=== PATIENT | female | born 1975 | race African-American/Black ===

== ENCOUNTER 2023-09-19 20:07 | Emergency (ER) | payer MEDICAID, SELFPAY ==
[2023-09-19 20:42] VITALS: BP 132/66; PULSE 86; RESP 18; TEMP 37; O2SAT 100; BMI 32.8
--- NOTE | 2023-09-19 20:55 | MHC.EDTECH ---
Patient brought into triage area,sars/flu/rsv,and step swabs obtained and sent to lab.
[2023-09-19 20:57] LABS: IDNOW Serial# 58CA691E; Strep A Nucleic Acid Positive (Negative)
[2023-09-19 21:31] LABS: Influenza A PCR NEGATIVE (Negative); Influenza B PCR NEGATIVE (Negative); Resp Syncy Virus RNA Qual PCR NEGATIVE (Negative); SARS COV2 PCR INHOUSE NEGATIVE (Negative)
--- NOTE | 2023-09-19 23:07 | ED.GENADULT ---
HPI - General Adult General Chief complaint: Upper Respiratory Symptoms Stated complaint: sore throat Time Seen by Provider: 09/19/23 22:27 Source: patient, family (Daughter), RN notes reviewed, old records reviewed and housing relocation Mode of arrival: ambulatory Limitations: language barrier ([place] Creole) History of Present Illness HPI narrative: 47-year-old female presents for evaluation of a sore throat. Patient reports that she has had a sore throat for 1 week She reports that she has painful swallowing Reports subjective fevers and general malaise Denies any coughing, abdominal pain, nausea vomiting Related Data Previous Rx's ?Medication ?Instructions ?Recorded amoxicillin 875 mg-potassium 1 tab PO Q12H #14 tabs 09/19/23 clavulanate 125 mg tablet Allergies Allergy/AdvReac Type Severity Reaction Status Date / Time No Known Allergies Allergy Verified 09/19/23 20:45 Review of Systems Constitutional: Constitutional: Reports body ache(s), Reports chills and Reports fever(s) ENT: Reports sore throat Cardiovascular: Cardiovascular: Denies chest pain and Denies dyspnea Respiratory: Respiratory: Denies cough and Denies dyspnea Gastrointestinal: Gastrointestinal: Denies abdominal pain, Denies nausea and Denies vomiting Musculoskeletal: Musculoskeletal: Denies back pain Integumentary/Breasts: Skin/Breast: Denies rash PMFSH Social History Social History Advance Directives: No Advance Directives Information Provided: No Physical Exam ED Vital Signs: Vital Signs - 24 hr 09/19/23 20:42 Temperature 98.6 F Pulse Rate 86 Respiratory Rate 18 Blood Pressure 132/66 Pulse Oximetry 100 Oxygen Delivery Method Room Air BMI result Body Mass Index 32.8 Const General: healthy appearing, comfortable, no acute distress, alert and awake Nutritional Appearance: well nourished Orientation/consciousness: patient oriented x3 HENMT Head: Yes normocephalic and Yes atraumatic Eyes Other: Retropharynx is erythematous, no obvious exudates. No evidence of peritonsillar abscess Eyelids: Yes eyelids normal Conjunctivae: conjunctivae normal Sclerae: sclerae normal Corneas: corneas normal Pupils: Equal, round and reactive pupils present EOM: EOMs intact bilaterally Neck Neck: Yes full ROM Resp Effort & Inspection: normal respiratory effort, able to speak in complete sentences and not labored Cardio Rate: regular rate Rhythm: regular rhythm GI Inspection: No distended Palpation (GI): Soft to palpation, not firm, nontender, no guarding and not rigid Skin General skin exam: elasticity normal Neuro General: patient oriented x3 Cranial nerves: Yes Equal, round and reactive pupils present and Yes Bilaterally intact EOM present Cognition (Neuro): normal cognition Extrem Other: Moving all extremities well without any obvious deformities Medical Decision Making Medical Decision Making MDM Narrative: 47-year-old female presents for evaluation of a sore throat. She tested positive for strep throat, no evidence of peritonsillar abscess. Will treat with Augmentin b.i.d. x7 days Differential Diagnosis Differential Diagnoses: The differential diagnosis associated with the presentation includes Pharyngitis Strep pharyngitis Upper respiratory infection Peritonsillar abscess Lab Data Labs: Lab Results 09/19/23 Range/Units 20:50 Influenza Type A (PCR) NEGATIVE (Negative) Influenza Type B (PCR) NEGATIVE (Negative) RSV RNA Qual (PCR) NEGATIVE (Negative) SARS-CoV-2 RNA (RT-PCR) NEGATIVE (Negative) S. pyogenes GrpA DAYA Positive A (Negative) Discharge Plan Discharge Clinical Impression: Strep throat Patient Disposition: Home, Self-Care Instructions: Strep Throat (ED) Additional Instructions: You tested positive for strep throat. Take Augmentin twice daily for 7 days. You may also use saltwater gargles to help with the pain. Use Motrin/Tylenol for pain Follow-up with your primary doctor Prescriptions: New amoxicillin-pot clavulanate 875-125 mg tablet 1 tab PO Q12H Qty: 14 0RF Print Language: Diomedes Fox
[2023-09-19 23:20] VITALS: BP 122/57; PULSE 86; RESP 16; O2SAT 97
[2023-09-19] MEDS: Amoxicillin/Potassium Clav 875 MG TABLET PO (23:20)
[2023-09-19 23:38] VITALS: BP 122/57; PULSE 86; RESP 17; TEMP 37; O2SAT 97
== END 2023-09-19 23:39 | disposition home or self-care (01) ==
PROVIDERS: Physician Assistant Medical; Emergency Provider Emergency Medicine
DX: J02.0 Streptococcal pharyngitis (principal)
CPT/HCPCS: 0241U; 87651; 99283

== ENCOUNTER 2023-12-22 15:31 | Outpatient (REF) | payer MEDICAID, SELFPAY ==
[2023-12-22 15:50] LABS: MANUAL DIFF FLAG NO
[2023-12-22 17:13] LABS: Basophils Percent Auto 0.5 % (0-2); Eosinophils Absolute Auto 0.1 X10*3/uL (0.0-0.4); Eosinophils Percent Auto 1.3 % (0-4); Hematocrit 38.3 % (37.0-47.0); Hemoglobin 12.9 g/dl (12.0-16.0); Imm Gran Abs Auto 0.03 X10*3/uL (0.00-0.03); Imm Gran Pct Auto 0.4 % (0.0-0.4); Lymphocytes Absolute Auto 1.6 X10*3/uL (1.2-4.9); Lymphocytes Percent Auto 20.5 % (20-40); Mean Corpuscular HGB Conc 33.7 g/dl (31.0-35.0); Mean Corpuscular Hemoglobin 29.9 pg (27.0-33.0); Mean Corpuscular Volume 88.7 fL (80.0-98.0); Mean Platelet Volume 12.7 fL (9.4-12.3); Monocytes Absolute Auto 0.5 X10*3/uL (0.1-1.2); Monocytes Percent Auto 6.4 % (2-11); Neutrophils Absolute Auto 5.5 x10*3/uL (2.0-8.3); Neutrophils Percent Auto 70.9 % (45-73); Platelet Count 217 X10*3/uL (160-400); Red Blood Count 4.32 X10*6/uL (4.20-5.50); Red Cell Distribution Width 14.4 % (11.0-16.0); White Blood Count 7.8 X10*3/uL (4.8-10.8)
[2023-12-22 18:08] LABS: Alanine Aminotransferase 29 U/L (0-31); Albumin Level 4.2 g/dL (3.5-5.0); Alkaline Phosphatase 83 U/L (39-117); Anion Gap 11 (12-20); Aspartate Amino Transferase 32 U/L (5-31); Bilirubin Total 0.3 mg/dL (0.0-1.0); Blood Urea Nitrogen 13 mg/dL (9-16); Calcium 9.3 mg/dL (8.4-10.2); Carbon Dioxide 24 mmol/L (22-29); Chloride 107 mmol/L (96-108); Cholesterol 252 mg/dL (<200); Estimated Glomerular Filt Rate > 60; Glucose Random 102 mg/dL (60-115); HDL Cholesterol 64 mg/dL (>40); LDL Cholesterol Calculated 144 mg/dL (<100); Potassium 4.2 mmol/L (3.3-5.1); Sodium 138 mmol/L (135-145); Total Protein 7.4 g/dL (6.5-8.0); Triglycerides 221 mg/dL (<150)
[2023-12-22 18:13] LABS: Thyroid Stimulating Hormone 1.48 uIU/mL (0.32-4.0)
== END 2023-12-22 15:32 | disposition home or self-care (01) ==
LOC: HO.LAB 15:31
PROVIDERS: PCP Internal Medicine; Visit Provider Internal Medicine
DX: Z00.00 Encounter for general adult medical examination without abnormal findings (principal); I10 Essential (primary) hypertension; E66.9 Obesity, unspecified; F32.9 Major depressive disorder, single episode, unspecified; Z12.4 Encounter for screening for malignant neoplasm of cervix
CPT/HCPCS: 36415; 80053; 80061; 84443; 85025

== ENCOUNTER 2024-01-29 09:46 | Emergency (ER) | payer MEDICAID, SELFPAY ==
[2024-01-29 09:58] VITALS: BP 104/59; PULSE 84; RESP 16; TEMP 36.1; O2SAT 97; BMI 32.6
--- NOTE | 2024-01-29 10:10 | ED_ITS ---
HPI - Eye Problem General Chief complaint: Eye Problems Stated complaint: Eye issues Time Seen by Provider: 01/29/24 10:05 Source: patient Mode of arrival: ambulatory Limitations: language barrier History of Present Illness HPI Narrative: 48 year old female with no significant past medical history presents to the emergency department, with family, for concerns for right eye pain and vision changes for 1 week. She reports roughly 1 week ago she got boiling water in the eye and has been having pain since. She states she made an appointment with a eye doctor for 02/18/2024 but states that she does not believe she can wait for that appointment. She denies any discharge from the eye. Related Data Previous Rx's ?Medication ?Instructions ?Recorded amoxicillin 875 mg-potassium 1 tab PO Q12H #14 tabs 09/19/23 clavulanate 125 mg tablet erythromycin 5 mg/gram (0.5 %) eye 0.5 inch ophthalmic-Right .At 01/29/24 ointment night #3.5 grams ofloxacin 0.3 % eye drops 2 drp ophthalmic-Right QID 5 days 01/29/24 #10 mL Allergies Allergy/AdvReac Type Severity Reaction Status Date / Time No Known Allergies Allergy Verified 01/29/24 10:10 Review of Systems Review of Systems: Yes all other systems are reviewed and are negative PMFSH Social History Social History Advance Directives: No Advance Directives Information Provided: No Physical Exam Vital Signs: Vital Signs: Last Vital Signs Temp 97 F 01/29/24 09:58 Pulse 84 01/29/24 09:58 Resp 16 01/29/24 09:58 BP 104/59 L 01/29/24 09:58 Pulse Ox 97 01/29/24 09:58 O2 Del Method Room Air 01/29/24 09:58 BMI result Body Mass Index 32.6 Nursing notes and vital signs reviewed. GENERAL APPEARANCE: A&0 x 4, generally well appearing, no acute distress HENMT: Normal to inspection, atraumatic, face symmetrical. Normal external ears, nose, and oropharynx clear. EYE: PERRLA, EOM intact, structures appear normal NECK: Supple without stiffness or restricted ROM. HEART: Normal rate and regular rhythm, normal S1/S2, no M/R/G LUNGS: LS CTA, moving air well. Able to speak in complete sentences. No crackles, wheezes, or rhonchi auscultated BACK: No CVAT, no obvious deformity EXTREMITIES: Moving all extremities without difficulty. Normal capillary refill. NEUROLOGICAL: Alert and oriented, moving all 4 extremities with equal strength. CN not formally tested but appearing grossly intact. Observed to ambulate with normal gait. Cognition normal SKIN: Warm and dry without any lesions, rash, or visible sores Eyes: Alignment and Position: alignment normal and position normal Eyelids: Yes eyelids normal Conjunctivae: conjunctivae normal and conjunctival abnormal Sclerae: sclerae normal Corneas: corneas abnormal on the right fluorescein used and abrasion at the following clock position (6 ); with no foreign body noted and fluorescein used Pupils: Equal, round and reactive pupils present EOM: EOMs intact bilaterally Neuro: Cranial nerves: Yes Equal, round and reactive pupils present Medications Administered Discontinued Medications Generic Name Dose Route Start Last Admin Trade Name Freq PRN Reason Stop Dose Admin Fluorescein Sodium 1 strip 01/29/24 10:06 01/29/24 10:12 Fluorescein Sodium Strip EYE-RIGHT 01/29/24 10:07 1 strip ONCE ONE Administration Tetracaine HCl 3 drop 01/29/24 10:06 01/29/24 10:12 Tetracaine Hcl/Pf 0.5% Oph Cuca 4 Ml Drops EYE-RIGHT 01/29/24 10:07 3 drop ONCE ONE Administration Medical Decision Making Medical Decision Making MDM Narrative: Old records reviewed for previous imaging, lab studies, ECGs, and notes. HPI obtained using tablet for [employer] rn or lvn. Patient was assessed the emergency department with no acute distress or toxicity noted. Tetracaine and fluorescein instilled into bilateral eyes ulceration or abrasion noted at 6 o'clock area of the cornea. Erythromycin and ofloxacin eye drops and the patient preferred pharmacy for management of symptoms. Patient reports that she has an appointment at the beginning of February with Ophthalmology. Patient educated to continue with that for follow-up return to the emergency department for worsening symptoms or other concerns. Patient is safe for discharge at this time with plan for [id number] Tylenol and/or NSAID such as ibuprofen or naproxen for fever/discomfort with dosing as per packaging. HPI, PE, diagnostics, and plan discussed with patient and family with no unanswered questions at this time. Strict return precautions given to return to the emergency department with new, worsening, or concerning emergent symptoms. Recommended to follow-up with there primary care provider in 24-48 hours for further treatment and management. Differential Diagnosis Differential Diagnoses: The differential diagnosis associated with the presentation includes But not limited to corneal abrasion, corneal ulcer, ocular burn, iritis, keratitis, herpes simplex, conjunctivitis, closed angle glaucoma, orbital trauma Independent Historian Clinical information obtained from an independent historian. History obtained from or confirmed by: Friend External Record Review External record reviewed: Prior outpatient labs Social Determinants Patient?s care significantly limited by Social Determinants of Health including: Other Social Determinant of Health Discharge Plan Discharge Clinical Impression: Corneal abrasion, right Patient Disposition: Home, Self-Care Instructions: Erythromycin (Into the eye), Ofloxacin (Into the eye), Corneal Abrasion (ED) Prescriptions: New ofloxacin 0.3 % drops 2 drp ophthalmic-Right QID 5 Days Qty: 10 0RF erythromycin 5 mg/gram (0.5 %) ointment 0.5 inch ophthalmic-Right .At night Qty: 3.5 0RF No Action amoxicillin-pot clavulanate 875-125 mg tablet 1 tab PO Q12H Qty: 14 0RF Referrals: [facility] [place] Family Medicine [Provider Group] [facility] [place] [facility] [Provider Group] [facility] [place] [facility] [Provider Group] Print Language: Diomedes Fox
[2024-01-29] MEDS: Fluorescein Sodium STRIP 1 STRIP EYE-RIGHT (10:12)
[2024-01-29] MEDS: Tetracaine HCl/PF 0.5% Oph Sol 4 ML DROPS 3 DROP EYE-RIGHT (10:12)
[2024-01-29 10:45] VITALS: BP 155/71; PULSE 76; RESP 18; TEMP 36.7; O2SAT 98
== END 2024-01-29 10:46 | disposition home or self-care (01) ==
PROVIDERS: Emergency Provider Emergency Medicine
DX: S05.01XA Injury of conjunctiva and corneal abrasion without foreign body, right eye, initial encounter (principal); X58.XXXA Exposure to other specified factors, initial encounter; Y93.89 Activity, other specified; Y92.89 Other specified places as the place of occurrence of the external cause; Y99.8 Other external cause status
CPT/HCPCS: 99282; 99283

== ENCOUNTER 2024-04-14 13:38 | Emergency (ER) | payer MEDICAID, SELFPAY ==
[2024-04-14 14:40] VITALS: BP 134/68; PULSE 81; RESP 16; TEMP 37; O2SAT 100; BMI 34.8
[2024-04-14] MEDS: Tetracaine HCl/PF 0.5% Oph Sol 4 ML DROPS 3 DROP EYE-BOTH (15:23)
[2024-04-14] MEDS: Fluorescein Sodium STRIP 1 STRIP EYE-RIGHT ×2 (15:23)
[2024-04-14 15:56] VITALS: BP 122/71; PULSE 77; RESP 16; TEMP 36.4; O2SAT 100
--- NOTE | 2024-04-14 16:11 | ED.GENADULT ---
HPI - General Adult General Chief complaint: Eye Problems Stated complaint: l eye swelling Time Seen by Provider: 04/14/24 14:50 Source: patient Mode of arrival: ambulatory Limitations: no limitations History of Present Illness ED Provider: Eric Kwong PA-C HPI narrative: 48-year-old female history of hypertension but not on any medication presents to ED for left eye pain with redness for the past 3 weeks. Patient was seen here 3 weeks ago and diagnosed size corneal abrasion but patient states no relief with antibiotic ointments. Patient states for 1 year having left and right eye redness interchangeably. Patient never had a workup. Related Data Previous Rx's ?Medication ?Instructions ?Recorded amoxicillin 875 mg-potassium 1 tab PO Q12H #14 tabs 09/19/23 clavulanate 125 mg tablet erythromycin 5 mg/gram (0.5 %) eye 0.5 inch ophthalmic-Right .At 01/29/24 ointment night #3.5 grams ofloxacin 0.3 % eye drops 2 drp ophthalmic-Right QID 5 days 01/29/24 #10 mL Allergies Allergy/AdvReac Type Severity Reaction Status Date / Time No Known Allergies Allergy Verified 04/14/24 14:43 Review of Systems Review of Systems: Left eye pain redness Yes all other systems are reviewed and are negative PMFSH Social History Social History Advance Directives: No Advance Directives Information Provided: Yes Physical Exam ED Vital Signs: Vital Signs - 24 hr 04/14/24 14:40 04/14/24 15:56 04/14/24 16:17 Temperature 98.6 F 97.6 F 97.6 F Pulse Rate 81 77 77 Respiratory Rate 16 16 16 Blood Pressure 134/68 122/71 122/71 Pulse Oximetry 100 100 100 Oxygen Delivery Method Room Air Room Air Room Air BMI result Body Mass Index 34.8 Const General: cooperative, healthy appearing, comfortable, no acute distress, well developed, alert, awake and Physically active Orientation/consciousness: patient oriented x3 HENMT Head: Yes normal to inspection, Yes No palpable skull fracture present, Yes normocephalic and Yes atraumatic Eyes Other: Left eye: Positive for conjunctival redness and photophobia. Tonometry pressure of 8. Fluorescein dye and tetracaine placed in the eye. Under Wood's lamp negative for signs of corneal abrasion, corneal ulcer, or globe rupture. Negative for hyphema. Visual acuity 20/30 Right eye normal. Visual acuity 2020. eye pressure 7 on tonometry pen Neck Neck: Yes normal visual inspection, Yes full ROM, Yes no lymphadenopathy and Yes no meningeal signs Chest Chest palpation & inspection: normal inspection of the chest and normal palpation of entire chest wall Resp Effort & Inspection: normal respiratory effort and able to speak in complete sentences Auscultation: clear to auscultation bilaterally Cardio Jugular venous distension: no JVD Heart sounds: S1 normal heart sound present and S2 normal heart sound present GI Inspection: Yes normal to inspection Palpation (GI): Soft to palpation, not firm, nontender, no guarding and not rigid General: No CVA tenderness and Yes no CVA tenderness Back/Spine/Pelvis Back: no CVA tenderness, No CVA tenderness and No back tenderness Skin General skin exam: no rashes or lesions noted, elasticity normal and turgor normal Neuro General: patient oriented x3, gait normal, tone normal, moves all extremities, Normal light touch and pain sensation, no meningeal signs, no focal motor deficits, CN's II-XI intact bilaterally and normal sensation to monofilament Extrem General: Yes normal to inspection, Yes full ROM and Yes capillary refill normal Psych Appearance: grossly normal, well kempt and not disheveled Medications Administered Discontinued Medications Generic Name Dose Route Start Last Admin Trade Name Basia PRN Reason Stop Dose Admin Fluorescein Sodium 1 strip 04/14/24 14:51 04/14/24 15:23 Fluorescein Sodium Strip EYE-RIGHT 04/14/24 14:52 1 strip ONCE ONE Administration Fluorescein Sodium 1 strip 04/14/24 14:51 04/14/24 15:23 Fluorescein Sodium Strip EYE-RIGHT 04/14/24 14:52 1 strip ONCE ONE Administration Tetracaine HCl 3 drop 04/14/24 14:51 04/14/24 15:23 Tetracaine Hcl/Pf 0.5% Oph Cuca 4 Ml Drops EYE-BOTH 04/14/24 14:52 3 drop ONCE ONE Administration Medical Decision Making Medical Decision Making MDM Narrative: 48-year-old female with left eye redness pain photophobia for the past 3 weeks. Physical exam negative for signs of corneal abrasion, corneal ulcer, globe rupture, hyphema. Negative for signs of glaucoma. Not suspecting orbital cellulitis, giant cell arteritis, or any brain bleed, skull fracture. Case was discussed with Dr. Glaser of Ophthalmology for recommend patient be brought to his office. Patient discharged and brought to his office directly for evaluation. Differential iritis episcleritis. Patient explained worrisome signs and informed to return to the ED immediately. Differential Diagnosis Differential Diagnoses: The differential diagnosis associated with the presentation includes (Conjunctivitis, corneal abrasion, corneal ulcer, for,) Admission/Observation Consideration of admission/observation: Escalation of care including admission/observation considered Consult Healthcare Provider Management of the patient was discussed with: Preparation Supervisor Freezing (Dr. Glaser) Independent Historian Clinical information obtained from an independent historian. History obtained from or confirmed by: Other (patient) External Record Review External record reviewed: Other (prior visit) Discharge Plan Discharge Clinical Impression: Acute left eye pain Patient Disposition: Home, Self-Care Instructions: Eye Pain (ED) Additional Instructions: Return to the ED immediately for worsening eye pain, redness, loss of vision, nausea, vomiting, or discharge Prescriptions: No Action ofloxacin 0.3 % drops 2 drp ophthalmic-Right QID 5 Days Qty: 10 0RF erythromycin 5 mg/gram (0.5 %) ointment 0.5 inch ophthalmic-Right .At night Qty: 3.5 0RF amoxicillin-pot clavulanate 875-125 mg tablet 1 tab PO Q12H Qty: 14 0RF Referrals: David Glaser [Physician] - (painful left eye) Stand Alone Forms: Work/School Release Interventions: ED Discharge Assessment Last Done: 04/14/24 16:17 Discharge Date/Time: 04/14/24 16:18 Print Language: Diomedes Fox
[2024-04-14 16:17] VITALS: BP 122/71; PULSE 77; RESP 16; TEMP 36.4; O2SAT 100
== END 2024-04-14 16:18 | disposition home or self-care (01) ==
PROVIDERS: Emergency Provider Emergency Medicine Emergency Medical Services; PCP Internal Medicine
DX: H57.12 Ocular pain, left eye (principal)
CPT/HCPCS: 99283

== ENCOUNTER 2024-04-15 09:27 | Outpatient (REF) | payer MEDICAID, SELFPAY ==
[2024-04-15 09:58] LABS: MANUAL DIFF FLAG NO
[2024-04-15 10:28] LABS: Basophils Absolute Auto 0.1 X10*3/uL (0.0-0.2); Basophils Percent Auto 1.1 % (0-2); Eosinophils Absolute Auto 0.1 X10*3/uL (0.0-0.4); Eosinophils Percent Auto 1.4 % (0-4); Hematocrit 36.5 % (37.0-47.0); Hemoglobin 12.1 g/dl (12.0-16.0); Imm Gran Abs Auto 0.03 X10*3/uL (0.00-0.03); Imm Gran Pct Auto 0.5 % (0.0-0.4); Lymphocytes Absolute Auto 1.4 X10*3/uL (1.2-4.9); Lymphocytes Percent Auto 21.7 % (20-40); Mean Corpuscular HGB Conc 33.2 g/dl (31.0-35.0); Mean Corpuscular Hemoglobin 27.5 pg (27.0-33.0); Mean Platelet Volume 12.6 fL (9.4-12.3); Monocytes Absolute Auto 0.5 X10*3/uL (0.1-1.2); Monocytes Percent Auto 7.1 % (2-11); Neutrophils Absolute Auto 4.4 x10*3/uL (2.0-8.3); Neutrophils Percent Auto 68.2 % (45-73); Platelet Count 251 X10*3/uL (160-400); Red Cell Distribution Width 14.9 % (11.0-16.0); White Blood Count 6.4 X10*3/uL (4.8-10.8)
[2024-04-15 10:57] LABS: Rheumatoid Factor < 13.0 IU/mL (<15.0)
[2024-04-15 11:08] LABS: Erythrocyte Sedimentation Rate 6 MM/HR (0-20)
[2024-04-20 16:43] LABS: Treponema pallidum Ab FTA ABS Nonreactive (Nonreactive)
[2024-04-21 07:03] LABS: Angiotensin Converting Enzyme 18.8 U/L (9-67)
[2024-04-21 08:18] LABS: Anti Nuclear Antibody Screen NEGATIVE (NEGATIVE)
== END 2024-04-15 09:28 | disposition home or self-care (01) ==
LOC: HO.LAB 09:27
PROVIDERS: PCP Internal Medicine; Visit Provider Ophthalmology
DX: H20.00 Unspecified acute and subacute iridocyclitis (principal)
CPT/HCPCS: 36415; 82164; 85025; 85652; 86038; 86140; 86431; 86780